=== PATIENT | male | born 1970 | race African-American/Black ===

== ENCOUNTER 2024-03-26 02:10 | Emergency (ER) | payer MEDICAID, SELFPAY ==
[2024-03-26 02:11] VITALS: BP 149/99; PULSE 88; RESP 18; TEMP 36.1; O2SAT 99; BMI 22.6
--- NOTE | 2024-03-26 03:09 | ED.VIS.BACK ---
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 He states sometime within the last week or 2, he was admitted to a hospital in [place] for depression. He states during that hospitalization, his back started hurting worse and it is on the left side, low back. Not radiating to his legs, no saddle anesthesia, bowel or bladder dysfunction. He states he is concerned that he has now fractured L5. He wants x-rays. He states he did not have any acute injury and this did not start suddenly. When asked about where the pain is compared to his prior pain, and what it feels like compared with his prior pain, he cannot make a comparison on either. It just hurts down here, I am not a doctor, you are. After evaluating the patient and ordering him some x-rays, he refuses to speak with registration until I evaluate his tooth ache which he did not initially mention. He states it is started hurting him yesterday evening and he knows it is a chronic issue. [facility] Medical History Depression Hypertension Chronic back pain Home Medications ?Medication ?Instructions ?Recorded ?Last Taken ?Type amoxicillin 500 mg tablet 500 mg PO TID #30 tabs 03/26/24 Unknown Rx ibuprofen 600 mg tablet 600 mg PO Q8H PRN PRN pain #20 03/26/24 Unknown Rx TABLETS Allergy/AdvReac Type Severity Reaction Status Date / Time No Known Allergies Allergy Verified 03/26/24 02:13 Social History Smoking Status: Never smoker ROS ROS ED Constitutional Constitutional ED: Denies chills or fever(s) ENT ENT ED: Reports dental pain Gastrointestinal Gastrointestinal: Denies abdominal pain, constipation, fecal incontinence, nausea or vomiting Genitourinary Genitourinary ED: Reports other Details: no urinary retention ; Denies abdominal discomfort or urinary incontinence Musculoskeletal Musculoskeletal: Reports as per HPI and back pain; Denies neck pain Integumentary Denies rash or wounds Neurologic Neurologic: Denies headache(s), paresthesias or weakness EXAM Physical Exam Const Vital Signs: 03/26/24 02:11 Temperature 97 F L Temperature Source Temporal Pulse Rate 88 Respiratory Rate 18 Blood Pressure 149/99 H Blood Pressure Mean 115 Pulse Ox 99 Oxygen Delivery Method Room Air Positive well nourished and well developed General Appearance ED: well developed and NAD HEENT HEENT Narrative: Very poor dentition mostly edentulous, he has 2 mandibular incisors right next to each other, most of the roots are exposed due to presumably chronic, significant gingivitis/gingival disease but there is no bleeding, gingival tenderness, or signs of necrotic tissue or hypertrophy of any gingiva. Tooth does not loose. There is no abscess, it is mildly tender, tooth #25. Negative for trauma or tenderness Eyes PERRL and EOMs intact bilaterally Neck full ROM and supple GI normal to inspection, nondistended, normoactive bowel sounds, soft to palpation and non-tender Back/Spine normal to inspection Lumbar Spine / Lower Back: ROM limited, paraspinal muscle tenderness and straight leg raise negative bilaterally; Negative for lumbar spinal tenderness Extremity normal to inspection, full ROM and no pedal edema Neuro oriented x3 and no sensory deficits noted Sensorium / Orientation: alert Motor Exam: strength 5/5 throughout and clonus absent Deep Tendon Reflexes: Rt Patellar (L4): 2+, Lt Patellar (L4): 2+, Rt Ankle (S1): 2+ and Lt Ankle (S1): 2+ Deep Tendon Reflexes Back: Rt Patellar (L4): 2+, Lt Patellar (L4): 2+, Rt Ankle (S1): 2+ and Lt Ankle (S1): 2+ Plantar Reflex: Downgoing: bilateral Psych mental status grossly normal and thought process normal Skin no rashes or lesions noted and no wounds MDM MDM MDM Narrative Medical decision making narrative: Nursing had said they would let him get x-rays prior to giving him pain medication, then the patient refused them till he got something for pain. He was given injection of Toradol. He is not appearing to be in severe pain, for the most part is very pleasant, I am happy to start him on amoxicillin for the dental pain which may be an early dental infection given his chronically poor dentition, but I do not think he needs narcotics for this. I am at a very low suspicion for fracture given the history as I discussed with him, he wants x-rays anyway which I was happy to order. Three-view x-ray series of the LS spine on my interpretation does show what appears to be a chronic L4 fracture/injury but no other acute injury. There are no old x-rays available here to compare. Patient is neurologically intact. He is here at 3 AM. Prescribed NSAIDs and amoxicillin for his dentition and advised to follow-up with his doctor and the dentist, given a dental resource list for his use if needed. Discharge Plan Triage Chief Complaint: Back ED Provider: Andres Morataya Dx/Rx/DC Orders Clinical Impression: Acute low back pain without sciatica, Odontalgia Instructions: ED Back Pain (Acute or Chronic) Prescriptions: New amoxicillin 500 mg tablet 500 mg PO TID Qty: 30 0RF ibuprofen 600 mg tablet 600 mg PO Q8H PRN PRN (Reason: pain) Qty: 20 0RF Primary Care Provider: Care Physician,No Primary Referrals: Dentist,Your [STAFF PHYSICIAN] - As soon as possible Doctor,Your [Non-Staff] - 1 Week if not improving Print Language: Armenian Disposition Disposition: Home, Self Care
[2024-03-26] MEDS: AMOXICILLIN 500 MG CAPSULE PO (03:14)
[2024-03-26] MEDS: Ketorolac 30 MG/ML Syringe IM (03:14)
--- NOTE | 2024-03-26 03:30 | RAD_ITS ---
INDICATION: pain EXAMINATION/TECHNIQUE: X-RAY - XR Spine Lumbar 2 or 3 Views COMPARISON: No relevant prior comparison study available FINDINGS: VERTEBRAE: Severe compression fracture of L4 likely a pathologic fracture. Further evaluation by CT scan is recommended. No significant facet arthropathy. DISCS: Disc spaces are maintained. INCLUDED ABDOMEN: Included bowel gas pattern is non-obstructive. RAD/Lumbar Spine 2 or 3 Views IMPRESSION: Severe compression fracture of L4 likely a pathologic fracture. Further evaluation by CT scan is recommended. Electronically Signed: Haley Ball MD at 4:45 EDT ,
[2024-03-26 03:40] VITALS: BP 149/99; PULSE 81; RESP 18; TEMP 36.1; O2SAT 99
== END 2024-03-26 03:41 | disposition home or self-care (01) ==
PROVIDERS: Emergency Provider Emergency Medicine; Visit Provider Emergency Medicine
DX: M54.50 Low back pain, unspecified (principal); K08.89 Other specified disorders of teeth and supporting structures; G89.29 Other chronic pain; Z87.81 Personal history of (healed) traumatic fracture; I10 Essential (primary) hypertension
CPT/HCPCS: 72100; 96372; 99282